=== PATIENT | male | born 1975 | race Caucasian/White ===

== ENCOUNTER 2016-12-04 12:59 | Emergency (ER) | payer MEDICAID ==
[2016-12-04 13:17] VITALS: BP 135/66; PULSE 78; RESP 18; TEMP 98; O2SAT 98
--- NOTE | 2016-12-04 14:06 | UCPHY ---
H & P Time Seen by Provider: 12/04/16 13:56 Patient Type: Established HPI/ROS: This patient has painful red swollen finger tips came in for concern of potential infection. 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 He reports no exacerbating or alleviating factors. ROS: No skin lesions elsewhere on his body. No fevers. 5 point ROS is otherwise negative. Smoking Status: Current every day smoker Physical Exam: Physical Exam Vital signs are normal. General: No acute distress Eyes: Pupils equal and react to light. Extraocular motions are intact. Lungs: No respiratory distress. Cardiac: Brisk capillary refill is intact throughout. Skin: No rash or pallor. Extremities: Atraumatic and normal except for finger tips which are notable for paronychial region swelling erythema with but no obvious fluctuance. This is present on multiple fingers bilaterally primarily 2nd and 3rd. No bony tenderness. Neuro: Alert and oriented x3 with no sensorimotor deficits. Differential diagnosis: Finger cellulitis, paronychia, eczema Constitutional: Initial Vital Signs Temperature (C) 36.6 C 12/04/16 13:14 Heart Rate 78 12/04/16 13:14 Respiratory Rate 18 12/04/16 13:14 Blood Pressure 135/66 H 12/04/16 13:14 O2 Sat (%) 98 12/04/16 13:14 O2 Delivery Mode Room Air Allergies/Adverse Reactions: No Known Allergies Allergy (Unverified 12/04/16 13:14) Home Medications: Medication Instructions Recorded Doxycycline Hyclate [Vibramycin 100 mg PO BID #20 cap 12/04/16 100 MG (*)] MDM/Departure - Depart Disposition: Home, Routine, Self-Care Clinical Impression: Paronychia of fingers of both hands Condition: Good Instructions: Paronychia (ED) Additional Instructions: Diagnosis: Paronychia of multiple fingers Plan: Hot water soaks 2 times a day Doxycycline antibiotic Yogurt or take a probiotic while on this to prevent diarrhea Stack finger splint to the finger that is most painful Ibuprofen Tylenol for pain control as needed Return for any significant worsening despite the treatment plan Prescriptions: Doxycycline Hyclate [Vibramycin 100 MG (*)] 100 mg PO BID #20 cap Referrals: NONE *PRIMARY CARE P,. [Primary Care Provider] - As per Instructions - PQRS PQRS Measurement: NA
== END 2016-12-04 14:24 | disposition home or self-care (01) ==
LOC: CED 12:59
DX: L03.011 Cellulitis of right finger (principal); L03.012 Cellulitis of left finger; Z72.0 Tobacco use
CPT/HCPCS: G0463-PO

== ENCOUNTER 2016-12-20 21:34 | Emergency (ER) | payer MEDICAID ==
[2016-12-20 21:54] VITALS: O2SAT 97
[2016-12-20] MEDS ORDERED: LETS SOLN TOPICAL 1 EA SYR TP ONE (22:05)
[2016-12-20] MEDS ORDERED: CEPHALEXIN 500 MG CAP PO ONE (23:07)
[2016-12-20] MEDS ORDERED: HYDROCOD/APAP 5/325 PREPACK#6 BTL TAKEHOME ONE (23:08)
--- NOTE | 2016-12-20 23:10 | UCPHY ---
H & P Time Seen by Provider: 12/20/16 21:55 Patient Type: Established HPI/ROS: I saw this patient on December 04 with eponychium/paronychia multiple fingers but nothing that was clearly fluctuant. He had some dry crusty areas of skin and multiple fingers. I treated him with doxycycline for 10 days and he reported that he had improvement in his fingers over that time complying with Epsom salt soaks and antibiotics but still has ongoing symptoms to the left 3rd and 4th finger paronychia region and primarily to the left 3rd with an eschar present to the ulnar paronychial aspect of the 3rd finger. He reports ongoing moderate pain in the affected fingers in more severe pain to the finger with the eschar. ROS: No fevers or other constitutional symptoms. HEENT: No complaints. 5 point ROS is otherwise negative Past Medical/Surgical History: He denies any previous significant finger injuries or frostbite. 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 He wears gloves while at work but has not been working over the past 2 weeks Smoking Status: Current every day smoker Physical Exam: Physical Exam Vital signs are normal. General: No acute distress HEENT: Atraumatic. Eyes: Pupils equal and react to light. Extraocular motions are intact. Lungs: No respiratory distress. Cardiac: Brisk capillary refill is intact throughout. Pulses are 2+ and symmetric in the affected extremity. Skin: No rash or pallor. Hands: Notable for mild crusting paronychia to the right 3rd and 4th fingers but no fluctuant areas. The left 3rd finger has a 1.5 cm x 8 mm brown eschar with slight fluctuance. There is mild erythema to the surrounding finger tip. He is exquisitely tender to this affected finger. Neuro: Alert and oriented x3 with no sensorimotor deficits. Differential diagnosis: Strep versus staph versus Pseudomonas paronychia of multiple fingers Constitutional: Initial Vital Signs Temperature (C) 36.6 C 12/20/16 21:46 Heart Rate 98 12/20/16 21:46 Respiratory Rate 20 12/20/16 21:46 Blood Pressure 163/106 H 12/20/16 21:46 O2 Sat (%) 97 12/20/16 21:46 O2 Delivery Mode Room Air Allergies/Adverse Reactions: No Known Allergies Allergy (Verified 12/20/16 21:45) Home Medications: Medication Instructions Recorded Doxycycline Hyclate [Vibramycin 100 mg PO BID #20 cap 12/04/16 100 MG (*)] Cephalexin [Keflex (*)] 500 mg PO QID #40 cap 12/20/16 MDM/Departure - [facility] Procedures: Digital block: After verbal consent, using 2% plain lidocaine, 27 gauge needle , chlorhexidine scrub under sterile conditions-3 injections were administered to the base of the affected finger, 8 mL with good effect. Patient tolerated this well. There were no complications. Wound debridement/I&D of left 3rd finger paronychia/eschar: After verbal consent using chlorhexidine followed by baby shampoo and warm water cleaning, 11. Scalpel blade and tissue scissors with pickups I debrided the eschar. Small amount of dark serous drainage is sent for culture. There is healthy appearing granulation tissue underneath this nonviable appearing skin. Patient tolerated this well. Bacitracin, Adaptic and tube gauze applied. There were no complications. Wound cultures sent and pending Medications Given: Discontinued Medications Tetracaine/Epinephrine/Lidocaine (Lets Soln Topical) 1 ea TP EDNOW ONE Stop: 12/20/16 22:06 Last Admin: 12/20/16 22:16 Dose: 1 ea ED Course/Re-evaluation: Keflex p.o. Vicodin for home Discussion: Unusual paronychia of multiple fingers the did not entirely clear with 10 days of doxycycline 1 finger-left 3rd with eschar with nonviable appearing tissue debrided to viable tissue - Depart Disposition: Home, Routine, Self-Care Clinical Impression: Paronychia Qualifiers: Laterality: unspecified laterality Qualified Code(s): L03.019 - Cellulitis of unspecified finger Condition: Good Instructions: Paronychia (ED) Additional Instructions: Diagnosis: Paronychia-multiple fingers primarily left 3rd Plan: Continue Epsom salt soaks twice a day with warm water. Ibuprofen Tylenol or Vicodin if needed for pain control. No driving, alcohol or come Vicodin Keflex antibiotic A cultures taken from the finger that should be back in 2-3 days. We will call you if the culture shows a bacteria that will not respond to the antibiotic. Prescriptions: Cephalexin [Keflex (*)] 500 mg PO QID #40 cap Referrals: NONE *PRIMARY CARE P,. [Primary Care Provider] - As per Instructions - PQRS PQRS Measurement: NA
[2016-12-20 23:37] VITALS: BP 157/98; PULSE 87; RESP 18; TEMP 98.2
== END 2016-12-20 23:28 | disposition home or self-care (01) ==
LOC: CED 21:34
PROC: 0H9GXZX Drainage of Left Hand Skin, External Approach, Diagnostic (ICD-10-PCS; principal; 2016-12-20)
DX: L03.012 Cellulitis of left finger (principal); Z72.0 Tobacco use
CPT/HCPCS: 11042-PO; 99214-PO; G0463-PO

== ENCOUNTER 2017-01-25 14:18 | Emergency (ER) | payer MEDICAID ==
[2017-01-25 14:32] VITALS: BP 144/89; PULSE 98; RESP 18; TEMP 98; O2SAT 95
--- NOTE | 2017-01-25 15:02 | EDPHY ---
H & P Stated Complaint: here 2 wks ago for finger infections- finish all keflex - not better HPI/ROS: HPI CHIEF COMPLAINT: Chronic finger wounds HISTORY OF PRESENT ILLNESS: This patient very pleasant 41-year-old male significant past medical history for chronic wounds to his finger tips. 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 He was recently here put on Keflex this been doing soaks. Patient tells me that it has really helped. He has not seen a hand surgeon. He is left-hand dominant. Of noted on his left hand he has lesion to the finger tips of the 2nd and 3rd fingers. No significant abscess or significant paronychia or cellulitis at this time. Also of note on his right hand 3rd digit he has a distal tip chronic wound again no significant cellulitis paronychia or fluctuance, appears chronic. Patient does report to me that he has pain. No fever. No new trauma. 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 Exam Constitutional triage nursing summary reviewed, vital signs reviewed, awake/ alert. Eyes normal conjunctivae and sclera, EOMI, PERRLA. HENT normal inspection, atraumatic, moist mucus membranes, no epistaxis, neck supple/ no meningismus, no raccoon eyes. Respiratory clear to auscultation bilaterally, normal breath sounds, no respiratory distress, no wheezing. Cardiovascular rate normal, regular rhythm, no murmur, no edema, distal pulses normal. Gastrointestinal soft, non-tender, no rebound, no guarding, normal bowel sounds, no distension, no pulsatile mass. Genitourinary no CVA tenderness. Musculoskeletal no midline vertebral tenderness, full range of motion, no calf swelling, no tenderness of extremities, no meningismus, good pulses, neurovascularly intact. Skin Right and left hand: He is left-hand dominant. Of noted on his left hand he has lesion to the finger tips of the 2nd and 3rd fingers. No significant abscess or significant paronychia or cellulitis at this time. Also of note on his right hand 3rd digit he has a distal tip chronic wound again no significant cellulitis paronychia or fluctuance, appears chronic. pink, warm, & dry, no rash, skin atraumatic. Again no abscess, no fluctuance. Distal tip of these fingers appear hard. Of note on all three finger tips involved, distal pad has blister present, brown in color, dark, hard. No fluctuance. Neurologic awake, alert and oriented x 3, AAOx3, moves all 4 extremities equally, motor intact, sensory intact, CN II-XII intact, normal cerebellar, normal vision, normal speech. Psychiatric normal mood/affect. Heme/Lymph/Immune no lymphadenopathy. Differential Diagnosis: Includes but is not limited to in a particular order, chronic infection, paronychia, finger tip abscess, felon, chronic finger tip wounds. Medical Decision Making: I recommend this patient sees a hand specialist. I will refer him to this. I will place him on doxycycline recommend that he continues to do warm soaks. Take Wedron for pain control. Understands return emergency room if there is worsening symptoms includes fever, worsening redness , worsening pain or questions or concerns I do feel that he would benefit from a hand specialist. These wounds appear chronic. Rx for doxycycline and Wedron. Referral to Hand surgery. Source: Patient - Personal History Current Tetanus Diphtheria and Acellular Pertussis (TDAP): Unsure - Medical/Surgical History Other PMH: denies - Social History Smoking Status: Current every day smoker Constitutional: Initial Vital Signs Temperature (C) 36.6 C 01/25/17 14:25 Heart Rate 98 01/25/17 14:25 Respiratory Rate 18 01/25/17 14:25 Blood Pressure 144/89 H 01/25/17 14:25 O2 Sat (%) 95 01/25/17 14:25 O2 Delivery Mode Room Air Allergies/Adverse Reactions: No Known Allergies Allergy (Verified 12/20/16 21:45) Home Medications: Medication Instructions Recorded Doxycycline Hyclate [Vibramycin 100 mg PO BID #20 cap 12/04/16 100 MG (*)] Cephalexin [Keflex (*)] 500 mg PO QID #40 cap 12/20/16 Doxycycline Hyclate 100 mg PO BID #20 capsule 01/25/17 Hydrocodone/APAP 5/325 [Wedron 1 - 2 tab PO Q4H PRN #10 tab 01/25/17 5/325 (*)] Departure - Departure Disposition: Home, Routine, Self-Care Clinical Impression: Wound, open, hand with or without fingers Qualifiers: Encounter type: initial encounter Open wound type: unspecified Foreign body presence: unspecified Laterality: unspecified laterality Qualified Code(s): S61.409A - Unspecified open wound of unspecified hand, initial encounter Condition: Good Instructions: How to Stop Smoking (ED), Blister (ED), Cellulitis (ED) Additional Instructions: 1. Continue to do warm soaks 5 times a day for 20 minutes. 2. Take her doxycycline prescription as prescribed 3.return emergency room if there is any worsening symptoms questions or concerns Referrals: NONE *PRIMARY CARE P,. [Primary Care Provider] - As per Instructions Prescriptions: Doxycycline Hyclate 100 mg PO BID #20 capsule Hydrocodone/APAP 5/325 [Wedron 5/325 (*)] 1 - 2 tab PO Q4H PRN #10 tab PRN Reason: Pain, Moderate
== END 2017-01-25 15:21 | disposition home or self-care (01) ==
LOC: CED 14:18
DX: S61.402D Unspecified open wound of left hand, subsequent encounter (principal); F17.200 Nicotine dependence, unspecified, uncomplicated; W45.8XXD Other foreign body or object entering through skin, subsequent encounter